=== PATIENT | male | born 1945 | race Two or more races ===

== ENCOUNTER 2020-01-01 06:56 | Inpatient (IN) | payer OTHER ==
[~2020-01-01] VITALS: Ht 160 cm; Wt 76.0 kg
[~2020-01-01 06:56] MED LIST: ASPI81CH43 PO; ENAL2.5T7 PO; GLIP5TAB12 PO; METF-370 PO; METO25TA5 PO; OME20GT PO; SIMV-13 PO; TAMS1CAP25 PO
[2020-01-01] MEDS ORDERED: LIDOCAINE 2%HCL (LOCAL ANESTH.) INJ 20ML MDV ONE (07:24)
[2020-01-01] MEDS ORDERED: IODIXANOL 320MG/ML 100ML BTL IV ONE ×2 (07:24→08:53)
[2020-01-01] MEDS ORDERED: ACETAMINOPHEN 500 MG TAB PO PRN ×2 (08:00→09:15)
[2020-01-01] MEDS ORDERED: HYDROcodone-ACET 5/325MG TAB PO PRN ×2 (08:00→09:15)
[2020-01-01] MEDS ORDERED: fentaNYL CITRATE 100 MCG/2 ML VL ONE (08:17)
[2020-01-01] MEDS ORDERED: VERAPAMIL 2.5MG/ML INJ 2ML VIAL IV ONE (08:17)
[2020-01-01] MEDS ORDERED: ANGIOMAX 250 MG VIAL IV ONE (08:17)
[2020-01-01] MEDS ORDERED: SODIUM CHL 0.9% 50 ML ONE (08:18)
[2020-01-01] MEDS ORDERED: MIDAZOLAM HCL 1MG/1ML-2 ML VIAL ONE (08:18)
[2020-01-01] MEDS ORDERED: HEPARIN SODIUM (PORCINE) 5000 UNITS/ML 1ML VIAL ONE (08:19)
[2020-01-01] MEDS ORDERED: TICAGRELOR 90 MG TAB ONE (09:01)
[2020-01-01] MEDS ORDERED: ASPirin 325 MG TAB ONE (09:04)
[2020-01-01] MEDS ORDERED: MORPHINE SULF INJ 2 MG/ML SYRINGE 1ML IV PRN (09:15)
[2020-01-01] MEDS ORDERED: ONDANSETRON HCL 4 MG/2 ML VIAL IV PRN (09:15)
[2020-01-01] MEDS ORDERED: NITROGLYCERIN 0.4 MG SL TAB SL PRN (09:15)
[2020-01-01] MEDS ORDERED: DEXTROSE (50%) 50ML SYRG IV PRN (10:00)
[2020-01-01] MEDS: METOPROLOL TARTRATE 25 MG TAB PO SCH ×2 (10:00→22:07)
[2020-01-01] MEDS: ENALAPRIL MALEATE 10 MG TAB PO SCH ×2 (10:00→22:07)
[2020-01-01] MEDS: ASPirin 81 mg TAB PO SCH (10:00)
[2020-01-01] MEDS: glipiZIDE 5 MG TAB PO SCH ×2 (10:13→22:06)
[2020-01-01] MEDS: PANTOPRAZOLE 40 MG TAB PO SCH (10:13)
[2020-01-01] MEDS: InsuLIN REG 1unit/0.01ml Soln (100units/ml) SC SCH ×2 (10:15→16:39)
[2020-01-01] MEDS: ACCU-CHEK COMFORT CURVE STRIP VI SCH ×3 (10:15→22:06)
[2020-01-01 11:03] VITALS: BP 126/79
--- NOTE | 2020-01-01 11:03 | NUR ---
Telemetry admit from POLYSOMNOGRAPHER GRAZYNA SALDIVAR admitted to Telemetry unit after SBAR received. Patient oriented to MANISH BOB primary RN, unit, room, bed, and unit policies regarding patient care and visiting hours. Patient now on continuous telemetry monitoring, tele box #[id number] and telemetry reading on arrival to unit is SR79. Patient weighed by bedscale and encouraged to call if they need something. All questions and concerns addressed, patient verbalized understanding.
--- NOTE | 2020-01-01 11:12 | NUR ---
VASC BAND 2 ml of air aspirated from vasc band per protocol. No signs of bleeding noted.
--- NOTE | 2020-01-01 11:30 | NUR ---
VASC BAND 2 ml of air aspirated from vasc band per protocol. No signs of bleeding noted.
--- NOTE | 2020-01-01 11:45 | NUR ---
VASC BAND 2 ml of air aspirated from vasc band per protocol. No signs of bleeding noted.
--- NOTE | 2020-01-01 11:50 | NUR ---
GIGI AT BEDSIDE UPDATED ON THE PATIENT STATUS, NEW ORDERS RECEIVED.
--- NOTE | 2020-01-01 12:03 | NUR ---
VASC BAND 2 ml of air aspirated from vasc band per protocol. No signs of bleeding noted.
--- NOTE | 2020-01-01 12:25 | NUR ---
VASC BAND REMOVED GAUZE AND TEGADERM APPLIED, NO SIGNS OF BLEEDING NOTED.
--- NOTE | 2020-01-01 16:04 | NUR ---
PATIENT COMPLAINING OF HEADACHE Pain medication has been given as ordered with no relief. Message left for MD eLe awaiting call back.
--- NOTE | 2020-01-01 16:15 | NUR ---
MD YU AT BEDSIDE updated on the patient's headache. New orders for tylenol 500mg PO q4h.
[2020-01-01] MEDS: ACETAMINOPHEN 500 MG TAB PO PRN ×2 (16:36→20:36)
[2020-01-01 17:00] VITALS: BP 149/83
--- NOTE | 2020-01-01 19:50 | NUR ---
Opening Shift Note Assumed care of patient, awake and alert. No S/S of distress/SOB or pain. Instructed on POC and to call for assist PRN. Bed in lowest locked position, call light within reach, side rails up x2, fall precautions in place. Will continue to monitor for changes Q1hr and PRN.
[2020-01-01] MEDS ORDERED: ATORVASTATIN 20 MG TAB PO SCH ×2 (22:00)
[2020-01-01] MEDS ORDERED: InsuLIN REG 1unit/0.01ml Soln (100units/ml) SC SCH (22:00)
[2020-01-01] MEDS ORDERED: TAMSULOSIN HYDROCHLORIDE 0.4 MG CAP PO SCH (22:00)
[2020-01-01] MEDS: TICAGRELOR 90 MG TAB PO SCH (22:05)
[2020-01-01 23:31] VITALS: BP 141/68
[2020-01-02 05:33] VITALS: BP 128/66
--- NOTE | 2020-01-02 06:45 | NUR ---
at bedside Dr. Lee at bedside. Per MD, patient clear for discharge.
[2020-01-02] MEDS: ACCU-CHEK COMFORT CURVE STRIP VI SCH ×2 (07:00→11:05)
[2020-01-02] MEDS: InsuLIN REG 1unit/0.01ml Soln (100units/ml) SC SCH ×2 (07:00→11:30)
--- NOTE | 2020-01-02 07:15 | NUR ---
Opening Shift Note Assumed care of patient, awake and alert in chair. No S/S of distress/SOB or pain. Instructed on POC and to call for assistance PRN, will continue to monitor for changes Q1hr and PRN.
[2020-01-02 09:00] VITALS: BP 133/69
[2020-01-02] MEDS ORDERED: TICA90TA PO (09:11)
[2020-01-02] MEDS ORDERED: ASPI-543 PO (09:11)
[2020-01-02] MEDS: ASPirin 81 mg TAB PO SCH (10:04)
[2020-01-02] MEDS: PANTOPRAZOLE 40 MG TAB PO SCH (10:04)
[2020-01-02] MEDS: glipiZIDE 5 MG TAB PO SCH (10:05)
[2020-01-02] MEDS: METOPROLOL TARTRATE 25 MG TAB PO SCH (10:05)
[2020-01-02] MEDS: ENALAPRIL MALEATE 10 MG TAB PO SCH (10:05)
[2020-01-02] MEDS: TICAGRELOR 90 MG TAB PO SCH (10:06)
[2020-01-02 13:00] VITALS: BP 127/74
--- NOTE | 2020-01-02 15:13 | NUR ---
Brilinta prescription provided to [facility] to fill prescription per MD order.
--- NOTE | 2020-01-02 15:14 | NUR ---
Sample bottle of Brilinta provided to the patient on discharge.
--- NOTE | 2020-01-02 15:15 | NUR ---
Discharge Discharge education and paperwork provided to the patient per MD order. Education translated for patient by staff member (Lao speaking only). Patient verbalized understanding. Instructed patient on discharge follow up appointment scheduled. Patient verbalized understanding. IV removed with aseptic technique, catheter intact. Dressing applied. Patient tolerated well, no trauma to site. Telemonitor removed and returned. Patient reports having all personal belongings. Respirations even and unlabored on room air, no distress noted. RWR dressing is clean, dry and intact with no bleeding, swelling or ecchymosis noted. Patient to notify staff once transportation arrives.
--- NOTE | 2020-01-02 15:50 | NUR ---
RE: Brilinta Patients daughter, Cathi, waiting for Brilinta prescription at [facility].
--- NOTE | 2020-01-02 15:51 | NUR ---
Patient transferred to private vehicle via wheelchair accompanied by staff member.
[2020-01-02 16:39] VITALS: BP 137/70
== END 2020-01-02 15:50 | disposition home or self-care (01) | DRG 247 ==
LOC: CATH 06:56 → TELE-CENTR 11:07
PROVIDERS: ADMIT Internal Medicine Cardiovascular Disease; ATTEND Internal Medicine Cardiovascular Disease
PROC: 027136Z Dilation of Coronary Artery, Two Arteries with Three Drug-eluting Intraluminal Devices, Percutaneous Approach (ICD-10-PCS; principal; 2020-01-01)
PROC: 4A023N7 Measurement of Cardiac Sampling and Pressure, Left Heart, Percutaneous Approach (ICD-10-PCS; 2020-01-01)
PROC: B211YZZ Fluoroscopy of Multiple Coronary Arteries using Other Contrast (ICD-10-PCS; 2020-01-01)
PROC: B215YZZ Fluoroscopy of Left Heart using Other Contrast (ICD-10-PCS; 2020-01-01)
DX: I25.10 Atherosclerotic heart disease of native coronary artery without angina pectoris (principal); E78.5 Hyperlipidemia, unspecified; E11.9 Type 2 diabetes mellitus without complications; I10 Essential (primary) hypertension; Z20.828 Contact with and (suspected) exposure to other viral communicable diseases
CPT/HCPCS: 82962; 92928; 92929; 93458; 99152; 99153; C1874; G0378; J1815; J2250; Q9967